=== PATIENT | female | born 1955 | race Caucasian/White ===

== ENCOUNTER 2017-05-09 00:34 | Emergency (ER) | payer OTHER ==
[2017-05-09 01:26] VITALS: BMI 30.5
[2017-05-09] MEDS ORDERED: ONDANSETRON 4 MG/2 ML VIAL IVPB ONE (02:03)
[2017-05-09] MEDS ORDERED: SODIUM CHLORIDE 1,000 ML IV STA (02:03)
[2017-05-09] MEDS ORDERED: morphine CARPU-JECT 4 MG/1 ML DISP.SYRIN IVPUSH ONE (02:03)
[2017-05-09] MEDS ORDERED: ONDANSETRON 4 MG/2 ML VIAL ONE (02:07)
[2017-05-09] MEDS ORDERED: morphine CARPU-JECT 4 MG/1 ML DISP.SYRIN ONE (02:07)
[2017-05-09 02:32] LABS: BASOPHIL 0.8 % (0-2.0); EOSINOPHIL 3.4 % (0-4.5); MCH 29.6 pg (25.7-33.7); MCHC 32.6 g/dl (32.0-36.0); MEAN CELL VOLUME 90.7 fl (80-96); MEAN PLT VOLUME 7.3 fl (7.5-11.1); NEUTROPHILS 62.4 % (42.8-82.8); PLATELET COUNT 324 K/MM3 (134-434); RDW 13.6 % (11.6-15.6); WHITE BLOOD COUNT 5.7 K/mm3 (4.0-10.0)
[2017-05-09 03:00] LABS: ALBUMIN 4.2 g/dl (3.4-5.0); ALK PHOS 100 U/L (45-117); ANION GAP 8 (8-16); BILIRUBIN,TOTAL 0.4 mg/dL (0.2-1.0); CO2 26 mmol/L (21-32); COCKROFT - GAULT 108.9275; CREATININE 0.7 mg/dL (0.55-1.02); GLUCOSE,RANDOM 93 mg/dL (74-106); SGOT/AST 23 U/L (15-37); SGPT/ALT 27 U/L (12-78); TOT PROT 7.3 g/dl (6.4-8.2)
--- NOTE | 2017-05-09 04:47 | PDOC ---
History of Present Illness - General Chief Complaint: Back Pain Stated Complaint: BACK PAIN Time Seen by Provider: 05/09/17 01:06 History Source: Patient Exam Limitations: No Limitations - History of Present Illness Initial Comments: 05/09/17 04:43 61yo Female patient with no significant past medical history presents to ED c/o back pain. Patient states she was in [place], when her symptom began. She states symptoms have been ongoing for the past 12 days. She states she visited with Dr. Lucero and was prescribed Naproxen and Robaxin with minimal relief. Patient denies trauma, fall, injury, dysuria, hematuria, rectal bleeding, fever , or any other complaints at this time. Occurred: reports: other (2 weeks) Severity: reports: severe Pain Location: reports: back Method of Injury: No: unknown, assault, direct blow, fall, motor vehicle crash, other Modifying Factors: improves with: pain medication. worse with: None, cold therapy, immobilization, rest, other Loss of Consciousness: no loss of consciousness Associated Symptoms (Fall): muscle spasms Past History - Travel Traveled outside of the country in the last 30 days: No Close contact w/someone who was outside of country & ill: No - Past Medical History Allergies/Adverse Reactions: Allergies Allergy/AdvReac Type Severity Reaction Status Date / Time No Known Allergies Allergy Verified 05/09/17 01:20 Home Medications: Ambulatory Orders Methocarbamol [Robaxin -] 750 mg PO BID 05/09/17 Naproxen [Naprosyn -] 500 mg PO BID 05/09/17 - Psycho/Social/Smoking Cessation Hx Suicidal Ideation: No Smoking History: Never smoked Hx Alcohol Use: No Drug/Substance Use Hx: No Trauma Specific PMHX - Complaint Specific PMHX Arthritis: No Back Injury: No Neck Injury: No Hx Sacro Iliac Joint Dysfunction: No Review of Systems - Review of Systems Able to Perform ROS?: Yes Is the patient limited Hungarian proficient: No Constitutional: No: Chills, Fever, Weakness ABD/GI: No: Constipated, Diarrhea, Nausea, Poor Appetite, Poor Fluid Intake, Vomiting : No: Dysuria, Flank Pain, Hematuria Musculoskeletal: Yes: Back Pain All Other Systems: Reviewed and Negative *Physical Exam - Vital Signs Last Vital Signs Temp Pulse Resp BP Pulse Ox 98.1 F 69 18 116/67 100 05/09/17 01:17 05/09/17 01:17 05/09/17 01:17 05/09/17 01:17 05/09/17 01:17 - Physical Exam General Appearance: Yes: Nourished, Appropriately Dressed, Moderate Distress. No: Apparent Distress, Mild Distress, Severe Distress Neck: positive: Trachea midline, Supple. negative: Stridor, Lymphadenopathy (R) , Lymphadenopathy (L) Respiratory/Chest: positive: Lungs Clear, Normal Breath Sounds. negative: Chest Tender, Respiratory Distress, Accessory Muscle Use, Labored Respiration, Rapid RR, Rhonchi, Stridor, Wheezing Cardiovascular: positive: Regular Rhythm, Regular Rate Gastrointestinal/Abdominal: positive: Normal Bowel Sounds, Soft. negative: Distended, Guarding, Rebound, Tenderness Musculoskeletal: positive: Normal Inspection, CVA Tenderness, CVA Tenderness (R) . negative: CVA Tenderness (L), Vertebral Tenderness Extremity: positive: Normal Capillary Refill, Normal Inspection, Normal Range of Motion. negative: Pedal Edema, Swelling, Calf Tenderness, Erythema, Inflammation Integumentary: positive: Normal Color, Dry, Warm. negative: Erythema, Rash Neurologic: positive: adjunct lecturer II-XII NML intact, Fully Oriented, Alert, Normal Mood/ Affect, Normal Response, Motor Strength 04/01 ED Treatment Course - LABORATORY CBC & Chemistry Diagram: 05/09/17 02:24 05/09/17 02:24 - ADDITIONAL ORDERS Additional order review: Laboratory Results 05/09/17 02:24 Sodium 142 Potassium 4.4 Chloride 108 H Carbon Dioxide 26 Anion Gap 8 BUN 19 H Creatinine 0.7 Creat Clearance w eGFR > 60 Random Glucose 93 Calcium 9.0 Total Bilirubin 0.4 AST 23 ALT 27 Alkaline Phosphatase 100 Total Protein 7.3 Albumin 4.2 05/09/17 02:24 RBC 4.36 MCV 90.7 MCHC 32.6 RDW 13.6 MPV 7.3 L Neutrophils % 62.4 Lymphocytes % 25.9 Monocytes % 7.5 Eosinophils % 3.4 Basophils % 0.8 - RADIOLOGY Radiology Studies Ordered: Category Date Time Status ABDOMEN & PELVIS CT W/O CONTR [CT] Stat CT Scan 05/09/17 02:[address] W/O CONTRAST [CT] Stat CT Scan 05/09/17 02:03 Taken - Medications Given in the ED: ED Medications Discontinued Medications Generic Name Dose Route Start Last Admin Trade Name Freq PRN Reason Stop Dose Admin Sodium Chloride 1,000 mls @ 1,000 mls/hr 05/09/17 02:03 05/09/17 02:28 Normal Saline - IV 05/09/17 03:02 1,000 mls/hr ASDIR STA Administration Morphine Sulfate 4 mg 05/09/17 02:03 05/09/17 02:20 Morphine Injection - IVPUSH 05/09/17 02:04 4 mg ONCE ONE Administration Ondansetron HCl 4 mg 05/09/17 02:03 05/09/17 02:20 Zofran Injection IVPB 05/09/17 02:04 4 mg ONCE ONE Administration Progress Note - Progress Note Progress Note: 0600: Patient unable to get up from stretcher to give urine sample. Toradol and Valium IV ordered. *DC/Admit/Observation/Transfer - Referrals Referrals: Hola Ordonez MD [Primary Care Provider] -
[2017-05-09] MEDS ORDERED: KETOROLAC TROMETHAMINE 30 MG/1 ML VIAL IM ONE (04:55)
[2017-05-09] MEDS ORDERED: diazePAM CARPU-JECT 10 MG/2 ML DISP.SYRIN IVPUSH ONE (04:55)
[2017-05-09] MEDS ORDERED: KETOROLAC TROMETHAMINE 30 MG/1 ML VIAL ONE (05:07)
[2017-05-09] MEDS ORDERED: diazePAM CARPU-JECT 10 MG/2 ML DISP.SYRIN ONE (05:07)
[2017-05-09 07:04] VITALS: TEMP 98.5
--- NOTE | 2017-05-09 07:38 | PDOC ---
ED Treatment Course - LABORATORY CBC & Chemistry Diagram: 05/09/17 02:24 05/09/17 02:24 - ADDITIONAL ORDERS Additional order review: Laboratory Results 05/09/17 02:24 Sodium 142 Potassium 4.4 Chloride 108 H Carbon Dioxide 26 Anion Gap 8 BUN 19 H Creatinine 0.7 Creat Clearance w eGFR > 60 Random Glucose 93 Calcium 9.0 Total Bilirubin 0.4 AST 23 ALT 27 Alkaline Phosphatase 100 Total Protein 7.3 Albumin 4.2 05/09/17 02:24 RBC 4.36 MCV 90.7 MCHC 32.6 RDW 13.6 MPV 7.3 L Neutrophils % 62.4 Lymphocytes % 25.9 Monocytes % 7.5 Eosinophils % 3.4 Basophils % 0.8 - Medications Given in the ED: ED Medications Discontinued Medications Generic Name Dose Route Start Last Admin Trade Name Freq PRN Reason Stop Dose Admin Diazepam 5 mg 05/09/17 04:55 05/09/17 05:03 Valium Injection - IVPUSH 05/09/17 04:56 5 mg ONCE ONE Administration Sodium Chloride 1,000 mls @ 1,000 mls/hr 05/09/17 02:03 05/09/17 02:28 Normal Saline - IV 05/09/17 03:02 1,000 mls/hr ASDIR STA Administration Ketorolac Tromethamine 30 mg 05/09/17 04:55 05/09/17 05:03 Toradol Injection - IM 05/09/17 04:56 30 mg ONCE ONE Administration Morphine Sulfate 4 mg 05/09/17 02:03 05/09/17 02:20 Morphine Injection - IVPUSH 05/09/17 02:04 4 mg ONCE ONE Administration Ondansetron HCl 4 mg 05/09/17 02:03 05/09/17 02:20 Zofran Injection IVPB 05/09/17 02:04 4 mg ONCE ONE Administration Progress Note - Progress Note Progress Note: I have received report from PABLITO Eubanks regarding this patient. Pt's initial chief complaint: back pain Pt's work up completed prior to sign out: labs, CT lumbar spine, CT abd/pelvis Pt treatment given from prior staff: IV fluids, morphine, toradol, valium, zofran Pt plan to be completed: Awaiting UA Dispo: Discharge Medical Decision Making - Medical Decision Making A/P: 61 y/o afebrile female with c/o back pain x 12 days. Pt was worked up by PABLITO Eubanks. She had a negative CT scan of her abd/pelvis and lumbar spine. She is now sleeping after having toradol and valium. Awaiting UA then most likely discharge. UA negative Will discharge to home. Encouraged the patient to continue taking the medications her doctor prescribed consistently as she has only taken them for one day. Pt instructed to f/u with her doctor and return to the ER with any worsening or concerning symptoms. The patient verbalizes understanding of all instructions, has no further questions and is awaiting discharge. *DC/Admit/Observation/Transfer Diagnosis at time of Disposition: Back pain Qualifiers: Back pain location: low back pain Chronicity: acute Back pain laterality: unspecified Sciatica presence: without sciatica Qualified Code(s): M54.5 - Low back pain - Discharge Dispostion Disposition: HOME Condition at time of disposition: Improved - Prescriptions Prescriptions: Diazepam [Valium] 5 mg PO Q8H #18 tablet MDD 3 - Referrals Referrals: Hola Ordonez MD [Primary Care Provider] - - Patient Instructions Printed Discharge Instructions: DI for Low Back Pain Additional Instructions: Discharge Instructions: -Apply heating pad to low back -Continue taking medications prescribed by your doctor consistently -Follow up with your doctor this week -Return to the ER with any worsening or concerning symptoms - Post Discharge Activity
[2017-05-09 08:17] LABS: URINE APPEARANCE CLEAR; URINE BILIRUBIN NEGATIVE (NEGATIVE); URINE BLOOD NEGATIVE (NEGATIVE); URINE COLOR STRAW; URINE GLUCOSE (UA) NEGATIVE (NEGATIVE); URINE KETONE NEGATIVE (NEGATIVE); URINE LEUK ESTERASE NEGATIVE (NEGATIVE); URINE NITRITE NEGATIVE (NEGATIVE); URINE PROTEIN NEGATIVE (NEGATIVE); URINE UROBILINOGEN NEGATIVE E.U./dl (0.2-1.0)
[2017-05-09 09:24] VITALS: BP 116/80; PULSE 89
--- NOTE | 2017-05-09 12:01 | PDOC ---
*Physical Exam - Vital Signs Last Vital Signs Temp Pulse Resp BP Pulse Ox 98.5 F 89 20 116/80 100 05/09/17 07:02 05/09/17 09:23 05/09/17 09:23 05/09/17 09:23 05/09/17 09:23 ED Treatment Course - LABORATORY CBC & Chemistry Diagram: 05/09/17 02:24 05/09/17 02:24 - ADDITIONAL ORDERS Additional order review: Laboratory Results 05/09/17 05/09/17 07:15 02:24 Sodium 142 Potassium 4.4 Chloride 108 H Carbon Dioxide 26 Anion Gap 8 BUN 19 H Creatinine 0.7 Creat Clearance w eGFR > 60 Random Glucose 93 Calcium 9.0 Total Bilirubin 0.4 AST 23 ALT 27 Alkaline Phosphatase 100 Total Protein 7.3 Albumin 4.2 Urine Color Straw Urine Appearance Clear Urine pH 5.0 Urine Protein Negative Urine Glucose (UA) Negative Urine Ketones Negative Urine Blood Negative Urine Nitrite Negative Urine Bilirubin Negative Urine Urobilinogen Negative Ur Leukocyte Esterase Negative 05/09/17 02:24 RBC 4.36 MCV 90.7 MCHC 32.6 RDW 13.6 MPV 7.3 L Neutrophils % 62.4 Lymphocytes % 25.9 Monocytes % 7.5 Eosinophils % 3.4 Basophils % 0.8 - Medications Given in the ED: ED Medications Discontinued Medications Generic Name Dose Route Start Last Admin Trade Name Jesus PRN Reason Stop Dose Admin Diazepam 5 mg 05/09/17 04:55 05/09/17 05:03 Valium Injection - IVPUSH 05/09/17 04:56 5 mg ONCE ONE Administration Sodium Chloride 1,000 mls @ 1,000 mls/hr 05/09/17 02:03 05/09/17 02:28 Normal Saline - IV 05/09/17 03:02 1,000 mls/hr ASDIR STA Administration Ketorolac Tromethamine 30 mg 05/09/17 04:55 05/09/17 05:03 Toradol Injection - IM 05/09/17 04:56 30 mg ONCE ONE Administration Morphine Sulfate 4 mg 05/09/17 02:03 05/09/17 02:20 Morphine Injection - IVPUSH 05/09/17 02:04 4 mg ONCE ONE Administration Ondansetron HCl 4 mg 05/09/17 02:03 05/09/17 02:20 Zofran Injection IVPB 05/09/17 02:04 4 mg ONCE ONE Administration Medical Decision Making - Medical Decision Making 05/09/17 12:00 Pharmacy called to report that they never received a prescription for Valium. Prescription resent today *DC/Admit/Observation/Transfer Diagnosis at time of Disposition: Back pain Qualifiers: Back pain location: low back pain Chronicity: acute Back pain laterality: unspecified Sciatica presence: without sciatica Qualified Code(s): M54.5 - Low back pain - Discharge Dispostion Disposition: HOME Condition at time of disposition: Improved - Prescriptions Prescriptions: Diazepam [Valium] 5 mg PO Q8H #18 tablet MDD 3 - Referrals Referrals: Hola Ordonez MD [Primary Care Provider] - - Patient Instructions Printed Discharge Instructions: DI for Low Back Pain Additional Instructions: Discharge Instructions: -Apply heating pad to low back -Continue taking medications prescribed by your doctor consistently -Follow up with your doctor this week -Return to the ER with any worsening or concerning symptoms - Post Discharge Activity
== END 2017-05-09 09:24 | disposition home or self-care (01) ==
LOC: JER 00:34
PROC: 3E033NZ Introduction of Analgesics, Hypnotics, Sedatives into Peripheral Vein, Percutaneous Approach (ICD-10-PCS; principal; 2017-05-09)
PROC: 3E0333Z Introduction of Anti-inflammatory into Peripheral Vein, Percutaneous Approach (ICD-10-PCS; 2017-05-09)
PROC: 3E033GC Introduction of Other Therapeutic Substance into Peripheral Vein, Percutaneous Approach (ICD-10-PCS; 2017-05-09)
PROC: 3E0337Z Introduction of Electrolytic and Water Balance Substance into Peripheral Vein, Percutaneous Approach (ICD-10-PCS; 2017-05-09)
DX: M54.5 Low back pain (principal)
CPT/HCPCS: 36415; 72131-TC; 74176-TC; 80053; 81003; 85025; 99281-25